=== PATIENT | male | born 1995 | race African-American/Black ===

== ENCOUNTER 2019-01-27 02:24 | Emergency (ER) | payer SELFPAY ==
[~2019-01-27] VITALS: Ht 172.7 cm; Wt 68.0 kg
[2019-01-27] MEDS ORDERED: IBUPROFEN 800MG TABLET PO ONE (06:00)
[2019-01-27 07:16] VITALS: BP 124/82
== END 2019-01-27 07:18 | disposition home or self-care (01) ==
LOC: EDBD 02:24 → ER 02:24
DX: M79.671 Pain in right foot (principal)
CPT/HCPCS: 73630; 99283